=== PATIENT | male | born 1950 | race African-American/Black ===

== ENCOUNTER → 2016-11-09 | Day surgery (SDC) | payer MEDICARE, BC ==
[~2016-11-09] MED LIST: ACET325T9 PO; ALLO300T PO; AMLO10TA2 PO; AMLO5TAB2 PO; ASPI81TA50 PO; CARV12.52 PO; FERR-26 PO; FERR325T72 PO; GLUC1TAB33 PO; HYDR-971 PO; IBUP200C9 PO; IBUP200T58 PO; IV RINGERS,LACTATED 1000ML 1,000 ML IV SCH; LIDOCAINE 2% PF Vial for OR 5 ML VIAL. ONE; METO25TA4 PO; NAPR220T70 PO; OMEP20TA63 PO; OXYC-323 PO; OXYC5TAB PO; POTA20TA4 PO; PROPOFOL 40 ML IV ONE; RIVA10TA PO; SERT100T PO; SIMV20TA3 PO; VALS1TAB22 PO; WARF-78 PO
--- NOTE | 2016-11-09 08:15 | PDOC1 ---
HISTORY & PHYSICAL H&P Tessa Rod [id number] 1950 10/01/2016 11:45 AM 05/16 [facility], [facility] OUR PATIENTS [facility] [address] [place], [place] [id number] Ph. [phone] Patient: Tessa Rod Date of : 1950 Date: 10/01/2016 11:45 AM Visit Type: Consult This 65 year old male presents for H/o colorectal polyp. History of Present Illness: 1. H/o colorectal polyp Prior screening: colonoscopy. Risk Factors: h/o colon polyp. Pertinent negatives include abdominal pain, change in bowel habits, change in stool caliber, constipation, decreased appetite, diarrhea, melena, nausea, rectal bleeding, vomiting, weight gain and weight loss. Additional information: No family history of colon cancer, No family history of Crohn's/colitis, No NSAID/ ASA use and Last colonoscopy 5 yrs ago. INTAKE COMMENTS: Intake Comments: Nurse Note: the pt is here today to schedule a colonoscopy due to a hx of colon polyps in 2011. PROBLEM LIST: Problem Description Onset Date Osteoarthritis of right knee, unspecified osteoarthritis type 07/22/2015 Paroxysmal atrial fibrillation 11/14/2015 Depressive disorder 08/17/2013 Atrial fibrillation with RVR 11/05/2015 Benign essential hypertension 12/01/2009 Hyperlipidemia 12/01/2009 Gastroesophageal reflux disease 01/21/2015 Osteoarthritis 06/25/2014 Tachycardia 11/05/2015 Morbid obesity with BMI of 40.0-44.9, adult 12/19/2015 BPH NOS w/o ur obs/LUTS 12/19/2015 Impotence of organic origin 06/21/2012 PAST MEDICAL/SURGICAL HISTORY (Detailed) Disease/disorder Onset Date Management Date Comments cardiac cath- normal coronaries 2007 Appendectomy Tonsillectomy right TKA in 10/29 Allergies Benign prostatic hypertrophy Colonic polyps 10/19/2011 colonoscopy with biopsy 10/19/2011 diverticulosis hemmorrhoidectomy GERD Hyperlipidemia hypertension Internal hemorrhoids 10/19/2011 obesity Osteoarthritis DIAGNOSTICS HISTORY: Test Ordered Interpretation Result completed COLONOSCOPY AND BIOPSY 10/19/2011 Abnormal Imp: Polyps, (bx). Grade 2 Internal hemorrhoids. BX: Hyperplastic polyp. 10/19/2011 ELECTROCARDIOGRAM, COMPLETE 09/23/2014 normal 09/23/2014 ELECTROCARDIOGRAM, COMPLETE 11/05/2015 abnormal a fib with moderate increased VR 11/05/2015 Test Ordered Ordering Comments Modifier COLONOSCOPY AND BIOPSY 10/19/2011 Gastroenterology ELECTROCARDIOGRAM, COMPLETE 09/23/2014 ELECTROCARDIOGRAM, COMPLETE 11/05/2015 Medications (Active): Started Medication Directions Instruction Stopped 04/05/2016 allopurinol 300 mg tablet take 1 tablet by oral route every day 09/24/2016 AMLODIPINE BESYLATE TABS 10MG TAKE 1 TABLET DAILY (NOTE NEW DOSE) 06/15/2016 METOPROLOL TARTRATE 25 MG TABLET TAKE 1 TABLET BY ORAL ROUTE 2 TIMES EVERY DAY 08/23/2016 POT CHLOR ER TABS 20MEQ TAKE 1 TABLET DAILY WITH FOOD 12/19/2015 Prilosec OTC 20 mg tablet,delayed release take 1 Tablet by Oral route 2 times every day 08/12/2016 SERTRALINE HCL TABS 100MG TAKE 1 TABLET DAILY (NOTE NEW DOSE) 05/07/2016 SIMVASTATIN TABS 20MG TAKE 1 TABLET EVERY EVENING 09/24/2016 VALSARTAN/HCTZ TABS 320/25 TAKE 1 TABLET DAILY 11/09/2015 Xarelto 20 mg tablet take 1 tablet by oral route every day with the evening meal Allergies: Ingredient Reaction Medication Name Comment LISINOPRIL cough REVIEW OF SYSTEMS System Neg/Pos Details Constitutional Negative Chills, fever, malaise, weight gain and weight loss. ENMT Negative Sore throat. Eyes Negative Double vision. Respiratory Negative Dyspnea and wheezing. Cardio Negative Chest pain and irregular heartbeat/palpitations. GI Positive See HPI. GI Negative Abdominal pain, change in bowel habits, change in stool caliber, constipation, decreased appetite, diarrhea, melena, nausea, see HPI, rectal bleeding and vomiting. Negative Dysuria and hematuria. Endocrine Negative Cold intolerance and heat intolerance. Psych Negative Anxiety. Integumentary Negative Hives and rash. MS Negative Joint pain. Erick/Lymph Negative Easy bleeding and easy bruising. Allergic/Immuno Negative Food allergies. VITAL SIGNS Time BP mm/Hg Pulse /min Resp /min Temp F Ht ft Ht in Ht cm Wt lb Wt kg BMI kg/ m2 BSA m2 O2 Sat% 11:39 AM 126/82 94 97.9 6.0 2.00 187.96 345.40 156.671 44.35 94 Time Measured by 11:39 AM Jenni Decker PHYSICAL EXAM: Exam Findings Details Constitutional Normal Well developed. Eyes Normal Conjunctiva - Right: Normal, Left: Normal. Sclera - Right: Normal, Left: Normal. Nasopharynx Normal Lips/teeth/gums - Normal. Neck Exam Normal Inspection - Normal. Thyroid gland - Normal. Respiratory Normal Inspection - Normal. Auscultation - Normal. Cardiovascular Normal Regular rate and rhythm. No murmurs, gallops, or rubs. Vascular Normal Pulses - Carotids: Normal, Femoral: Normal, Dorsalis pedis: Normal. Abdomen Normal Inspection - Normal. Anterior palpation - No guarding. No abdominal tenderness. No hepatic enlargement. No splenic enlargement. No hernia. No ascites. Skin Normal Inspection - Normal. Extremity Normal No edema. Psychiatric * Oriented to time, place, person and situation. Psychiatric Normal Appropriate mood and effect. Assessment/Plan # Detail Type Description 1. Assessment History of colon polyps (Z86.010). Patient Plan schedule colonoscopy at [facility] Plan Orders Further diagnostic evaluations ordered today include(s) Colonoscopy to be performed today. He is to schedule a follow-up visit with Adelaida Buckner MD upon completion of work-up Electronically signed by: Adelaida Buckner MD 10/01/2016 01:55 PM Document generated by: Adelaida Bcukner 10/01/2016 01:55 PM Lissette Kaur MD, Family Practice; Saeid Smith MD Internal Medicine; Na Nice MD, Internal Medicine; Rose Buckner MD Internal Medicine; Adelaida Buckner MD, Gastroenterology; Osman Bender MD, Rheumatology, S. Jose Daniel Cárdenas, Physical Medicine/Rehab Darya Stewart APRN ------ 11/09/16 Patient seen and examined. No change in H&P. ADELAIDA BUCKNER MD Nov 09, 2016 08:15
[2016-11-09 10:01] VITALS: BP 174/99
--- NOTE | 2016-11-09 11:39 | PDOC4 ---
GI OP Report - Dr. Bess Date/Time DATE: 11/09/16 TIME: 11:37 Attending Physician Ron Bess MD Referring Physician Indications Personal history of colonic polyps Pre-Op See the Anesthesia note for documentation of the administered medications Procedures Colonoscopy Findings - Internal hemorrhoids. - Abnormal mucosa at the appendicial oppening. Plan - Discharge patient to home. - Patient has a contact number available for emergencies. The signs and symptoms of potential delayed complications were discussed with the patient. Return to normal activities tomorrow. Written discharge instructions were provided to the patient. - Resume regular diet. - Continue present medications. - Await pathology results. - Repeat colonoscopy in 3 - 5 years for surveillance based on pathology results. - Return to my office in 2 weeks. RON BESS MD Nov 09, 2016 11:39
== END | disposition home or self-care (01) ==
LOC: ENDOS 08:05
PROVIDERS: ATTEND Internal Medicine Gastroenterology
DX: Z09 Encounter for follow-up examination after completed treatment for conditions other than malignant neoplasm (principal); Z87.19 Personal history of other diseases of the digestive system; K64.0 First degree hemorrhoids; E78.00 Pure hypercholesterolemia, unspecified; I48.91 Unspecified atrial fibrillation; I10 Essential (primary) hypertension; E66.9 Obesity, unspecified; Z68.44 Body mass index [BMI] 60.0-69.9, adult; K21.9 Gastro-esophageal reflux disease without esophagitis; Z87.39 Personal history of other diseases of the musculoskeletal system and connective tissue; M19.90 Unspecified osteoarthritis, unspecified site; Z96.652 Presence of left artificial knee joint; F32.9 Major depressive disorder, single episode, unspecified; F17.200 Nicotine dependence, unspecified, uncomplicated; Z88.8 Allergy status to other drugs, medicaments and biological substances
CPT/HCPCS: 45380; J2704

== ENCOUNTER → 2016-12-07 | Outpatient (CLI) | payer MEDICARE, BC ==
[2016-11-09 10:01] VITALS: BP 174/99
[~2016-12-07] MED LIST changes: -IV RINGERS,LACTATED 1000ML 1,000 ML IV SCH; -LIDOCAINE 2% PF Vial for OR 5 ML VIAL. ONE; -PROPOFOL 40 ML IV ONE
--- NOTE | 2016-12-07 14:07 | KCIC ---
MRI of the cervical spine without contrast 12/07/2016 CLINICAL HISTORY: Neck pain which radiates down the left arm. Bilateral hand numbness. TECHNIQUE: Unenhanced T1-weighted, T2-weighted and inversion recovery sagittal and gradient echo and T2-weighted axial images of the cervical spine were obtained. FINDINGS: Mild S-shaped curvature of the cervicothoracic spine is seen. There is straightening of the normal cervical lordosis. Degenerative signal changes are seen involving all of the disks of the cervical spine. Degenerative signal changes are seen within the marrow surrounding these discs. Loss of height of the C3-4, C4-5, C5-6 and C6-7 discs is noted. No area of abnormal signal intensity is seen involving the cervical spinal cord. At the C2-3 disc space there is a minimal generalized disc bulge. Degenerative changes are seen involving the facet joints and uncovertebral joints bilaterally. These findings do not result in significant central spinal canal or neural foraminal stenosis. At the C3-4 disc space there is a mild generalized disc bulge. Superimposed on this disc bulge is a right paracentral disc protrusion. This measures 2.5 mm in AP diameter. Degenerative changes are seen involving the uncovertebral and facet joints, left greater than right. These findings efface the anterior CSF without resulting in significant central spinal canal stenosis. Mild to moderate left neural foraminal stenosis is seen. The right neural foramen is patent. At the C4-5 disc space there is a mild generalized disc bulge. Degenerative changes are seen involving the uncovertebral and facet joints, right greater than left. These findings efface the anterior CSF without resulting in significant central spinal canal stenosis. Mild to moderate right greater than left neural foraminal stenosis is seen. At the C5-6 disc space there is a mild generalized disc bulge. Superimposed on this disc bulge is a central/right paracentral disc osteophyte complex. This measures 3 mm in AP diameter. Degenerative changes are seen involving the uncovertebral and facet joints bilaterally. These findings when combined efface the anterior CSF without resulting in significant central spinal canal or neural foraminal stenosis. At the C6-7 disc space there is a mild generalized disc bulge. Superimposed on this disc bulge is a central/right paracentral focal disc protrusion. This measures 3 mm in AP diameter. Degenerative changes are seen involving the uncovertebral and facet joints, right greater than left. These findings when combined do not result in significant central spinal canal or neural foraminal stenosis. At the C7-T1 disc space is a mild generalized disc bulge. Degenerative changes are seen involving the facet joints bilaterally. These findings do not result in significant central spinal canal or neural foraminal stenosis. IMPRESSION: Degenerative changes are seen throughout the cervical spine. These findings do not result in significant central spinal canal stenosis at any level. Mild to moderate left neural foraminal stenosis is seen at C3-4. Mild to moderate right greater than left neural foraminal stenosis is seen at C4-5. Electronically signed by: Evaristo Vargas MD (12/07/2016 2:03 PM) [id number]
--- NOTE | 2016-12-07 14:34 | KCIC ---
MRI of the lumbar spine without contrast 12/07/2016 CLINICAL HISTORY: Low back pain which radiates down both hips. TECHNIQUE: Unenhanced T1-weighted and T2-weighted sagittal and axial and inversion recovery sagittal images of the lumbar spine were obtained. FINDINGS: Very mild S-shaped curvature of the thoracolumbar spine is seen. Degenerative signal changes are seen involving all of the disks of the lumbar spine. Degenerative signal changes are seen within the marrow surrounding the L3-4, L4-5 and L5-S1 discs. Loss of height of the L5-S1 disc is noted. The conus medullaris is normal morphology, position, and signal characteristics. A 3.1 cm rounded high signal intensity lesion is seen involving the lower pole of the right kidney on the T2-weighted images. This likely represents a cyst. At the L1-2 and L2-3 disc spaces there are mild generalized disc bulges. Degenerative changes are seen involving the facet joints bilaterally. There is mild ligamentum flavum hypertrophy bilaterally. These findings when combined do not result in significant central spinal canal or neural foraminal stenosis. At the L3-4 disc space there is a mild generalized disc bulge. Degenerative changes are seen involving the facet joints bilaterally. There is mild to moderate ligamentum flavum hypertrophy bilaterally. There is prominence of the posterior epidural fat. These findings when combined result in very mild central spinal canal stenosis. No neural foraminal stenosis is seen. At the L4-5 disc space there is a mild to moderate generalized disc bulge. This is eccentric to the right. Superimposed on this disc bulge is a focal central disc protrusion. This measures 4 mm in AP diameter. Degenerative changes are seen involving the facet joints bilaterally. There is moderate ligamentum flavum hypertrophy bilaterally. There is prominence of the posterior epidural fat. These findings when combined result in moderate to severe central spinal canal stenosis. No neural foraminal stenosis is seen. At the L5-S1 disc space there is a mild generalized disc bulge. Degenerative changes are seen involving the facet joints bilaterally. There is prominence of the posterior epidural fat. These findings when combined result in mild to moderate central spinal canal stenosis. No neural foraminal stenosis is seen. IMPRESSION: The changes of degenerative disc disease are seen throughout the lumbar spine. These findings result in very mild central spinal canal stenosis at L3-4, mild to moderate central spinal canal stenosis at L5-S1 and moderate to severe central spinal canal stenosis at L4-5. No neural foraminal stenosis is seen. Electronically signed by: Evaristo Vargas MD (12/07/2016 2:31 PM) [facility]
== END | disposition home or self-care (01) ==
LOC: KCIC MRI 11:50
PROVIDERS: ATTEND Physical Medicine & Rehabilitation
DX: M47.892 Other spondylosis, cervical region (principal); M99.81 Other biomechanical lesions of cervical region
CPT/HCPCS: 72141; 72148

== ENCOUNTER → 2018-12-26 | Outpatient (CLI) | payer MEDICARE ==
[2016-11-09 10:01] VITALS: BP 174/99
[~2018-12-26] MED LIST changes: -AMLO10TA2 PO; +AMLO10TA4 PO; +AMLO10TA8 PO; +AMLO5TAB10 PO; -AMLO5TAB2 PO; +CARV12.511 PO; -CARV12.52 PO; -FERR-26 PO; +FERR325T14 PO; +HYDR-2761 PO; +HYDR-3164 PO; -HYDR-971 PO; -OXYC-323 PO; +OXYC1TAB15 PO; -OXYC5TAB PO; +OXYC5TAB4 PO
--- NOTE | 2018-12-26 12:41 | PAIN ---
DATE OF SERVICE: 12/26/2018 INITIAL CONSULTATION FOR PAIN CLINIC CHIEF COMPLAINT: Neck, right upper extremity pain. SECONDARY COMPLAINT: Back and right lower extremity pain. HISTORY OF PRESENT ILLNESS: This is a 68-year-old male who presents with history of pain for many years in the back of the neck, right upper extremity with low back and right lower extremity. The patient reports it is much worse in the neck and right upper extremity with radiating pain, shooting from the base of the neck and the right shoulder, right arm and anterior deltoid, posterior deltoid, anterior biceps and triceps posteriorly as well as the anterior and posterior forearm with numbness and tingling in the hand and fingers on the right side. The patient reports it is sharp and stabbing and throbbing in quality with numbness, radiating pain in the right arm, intermittent in intensity, also some numbness in the right thigh bilaterally. The patient reports it is aching in the arm and shoulder as well. The patient reports he has had physical therapy, also trigger point injections, which both were helpful to some extent. Most recently 06/08 had trigger point injections with Dr. Jose Daniel Cárdenas which helped for about a week. The patient reports otherwise the pain has been significant and radiating, more in the right upper extremity. The patient rates his disability from 0-10, 10 being the worst, is a 10 with family and home responsibilities, recreation, occupation and sexual behavior, 8 with social activity and self-care, and 2 with life support activities. The patient reports it awakens him from sleep very infrequently, but does affect his bowel or bladder control, to some extent. He has more urgency, but no loss of continence with the back and right leg pain. The patient reports he is using a cane to walk. It does affect his walking to fairly significant extent with the low back and right leg, but again his chief complaint is the right arm and upper extremity and neck. The patient did have MRI scan dated 11/2016. Cervical spine showing at C4-C5, C5-C6 and C6-C7, generalized disk bulge at C6-C7, shows superimposed central right paracentral focal disk protrusion at C6-C7 measuring 3 mm in AP diameter with a mild generalized disk bulge at C7-T1 as well and central right paracentral disk osteophyte complex at C5-C6. The patient's lumbar MRI shows degenerative disk disease throughout the lumbar spine, very mild central spinal canal stenosis at L3-L4 and [id number] central spinal canal stenosis at L5-S1. The patient also has L4-L5 a central disk protrusion eccentric to the right. PAST MEDICAL HISTORY: Significant for hypertension, atrial fibrillation, gastroesophageal reflux, dizziness, arthritis. PREVIOUS SURGERIES: Include bilateral knee replacements, appendectomy and tonsillectomy. CURRENT MEDICATIONS: Include Prilosec, Xarelto, atorvastatin, potassium chloride, metoprolol, Norvasc, Zoloft, allopurinol, losartan, and hydrocodone. ALLERGIES: The patient has no known drug allergies. FAMILY HISTORY: Significant for no major medical problems or conditions that he is aware of. SOCIAL HISTORY: The patient does not drink alcohol, does not smoke, does not use any illegal, illicit or recreational drugs. The patient reports he is a , lives locally in [place], [place] and is currently retired. REVIEW OF SYSTEMS: The patient's review of systems is positive for those items mentioned in history of present illness. All systems reviewed and otherwise negative. It is complete, full and well documented on the patient's chart. PHYSICAL EXAMINATION: VITAL SIGNS: The patient's blood pressure is 179/95, pulse 61, respirations 18, temperature 97.8 degrees Fahrenheit, height 6 feet 4 inches, weight is 361 pounds. GENERAL: The patient is awake, alert, oriented, appropriate, very pleasant demeanor. HEENT: Shows normocephalic, atraumatic. Extraocular movements are intact and symmetrical. Oral cavity: Mucous membranes moist and pink. Dentition is intact. NECK: Shows anterior throat supple without palpable lymphadenopathy noted. Swallow reflex symmetrical. CHEST: Shows normal on inspection. Breath sounds clear to auscultation bilaterally. HEART: Shows S1, S2 clear. No murmurs auscultated. ABDOMEN: Soft, nontender, nondistended. No palpable organomegaly is noted. No rebound or guarding demonstrated. BACK: Shows spine grossly in the midline. Normal appearing thoracic kyphosis, cervical lordotic curvature and lumbar lordotic curvature. Cervical paraspinous muscle shows symmetrical on inspection, on palpation shows some moderate tenderness diffusely throughout the middle and lower distribution of paraspinous muscles, but only diffusely without significant radiation. The patient has good rotational motion of cervical spine with some moderate tenderness with left lateral rotation as well as full extension, but not with forward flexion or right lateral rotation. EXTREMITIES: The patient's upper extremities show deep tendon reflexes 2+ in the biceps and triceps tendons. Motor exam is strong with size maker strength rated at 5/5 on the left and 4/5 on the right. Bicep and tricep flexion likewise 4/5 right, 5/5 on the left, but intact. Peripheral pulses are 2+ radial distribution. No peripheral edema is noted. Shoulder shrug is strong and intact without loss of strength on resistance as is abduction of shoulder to 90 degrees without significant loss of strength with resistance shows some moderate pain on the right side of the shoulder and into the anterior biceps with resistance on the right only. The patient's lower extremities show deep tendon reflexes 1+ in the patellar and tendo calcaneus tendons. Motor exam is strong with 5/5 dorsiflexion, extension and equal bilaterally. Peripheral pulses are 1+ posterior tibia. No peripheral edema is noted. The patient's skin shows warm and dry, good turgor. No edema. No sores, rashes or bruising. The patient is able to stand, stand on toes without difficulty or loss of balance, walks with a normal appearing gait for short distance in the office today and has a cane with him using in his right hand. IMPRESSION: This is a 68-year-old male with: 1. Long history of neck and right upper extremity pain with cervical radicular pain in a C6-C7 dermatomal distribution on the right. 2. Low back pain and right radicular pain in the lumbar 4 and 5 dermatomal distribution. 3. Hypertension. 4. Arthritis. 5. Atrial fibrillation. 6. Anticoagulation therapy. PLAN: Options were discussed with the patient including conservative medical managements, continued physical therapies, interventional techniques. He would like to pursue interventional techniques. We discussed a cervical epidural steroid injection using description as well as anatomical models to describe the procedure. The patient will wait for preauthorization with insurance provider for a translaminar C6-C7 level cervical epidural steroid injection for the right upper extremity. We discussed possibility of potentially treating his back in the future as well with his neck and right upper extremity. Cervical radiculopathy is most pressing pain component at this time. We will wait for preauthorization. 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 Manriquez for clearance to hold his Xarelto for 3 days prior to injection and return for cervical epidural steroid injection as scheduled. KATHE BARRON MD DR: ADRIANA/cliff JOB#: [id number] / [id number] JOHN Moore MD
== END | disposition home or self-care (01) ==
LOC: PNCL 10:58
PROVIDERS: ATTEND Anesthesiology
DX: M54.5 Low back pain (principal); M79.601 Pain in right arm; M54.2 Cervicalgia; I10 Essential (primary) hypertension; I48.91 Unspecified atrial fibrillation; K21.9 Gastro-esophageal reflux disease without esophagitis; M19.90 Unspecified osteoarthritis, unspecified site; Z96.653 Presence of artificial knee joint, bilateral; Z90.49 Acquired absence of other specified parts of digestive tract; Z90.89 Acquired absence of other organs; Z79.84 Long term (current) use of oral hypoglycemic drugs; Z79.891 Long term (current) use of opiate analgesic; Z79.1 Long term (current) use of non-steroidal anti-inflammatories (NSAID); Z79.899 Other long term (current) drug therapy; Z79.01 Long term (current) use of anticoagulants
CPT/HCPCS: G0463

== ENCOUNTER → 2019-01-19 | Outpatient (CLI) | payer MEDICARE ==
[2016-11-09 10:01] VITALS: BP 174/99
[~2019-01-19] MED LIST changes: +IOHEXOL 180 MG/ML 10 ML VIAL. ONE; +methylPREDNISolone ACETATE 40 MG/ML VIAL. ONE; +methylPREDNISolone ACETATE 80 MG/ML VIAL. ONE
--- NOTE | 2019-01-20 04:28 | PAIN ---
DATE OF SERVICE: 01/19/2019 PROGRESS NOTE FOR PAIN CLINIC DIAGNOSES: 1. Cervical radiculopathy with cervical degenerative disk disease. 2. Lumbar radiculopathy with lumbar degenerative disk disease. HISTORY OF PRESENT ILLNESS: The patient is a 68-year-old male who returns for followup status post initial evaluation and preauthorization for cervical epidural steroid injection. The patient has obtained this now and would like to proceed, still significant pain in the base of the shoulders, right greater than left into the upper extremities, worse with walking, standing, changing positions, upper extremity use repetitive motions, reaching over his head with his right hand and left hand, both symptomatic. It is awakening him from sleep about every 5-6 hours. The patient reports it is tingling, sharp, rates his pain at 8 on a scale of 10 at its worst over the past week, 8 on average and a 7 at its least and is a 7 today. The patient reports no new motor or sensory deficits, no new bowel or bladder incontinence. Also, some low back pain with pain radiating to bilateral lower extremities as well. PHYSICAL EXAMINATION: VITAL SIGNS: The patient's blood pressure 152/96, pulse 67, respirations 16, temperature 98.2 degrees Fahrenheit, weight is 354 pounds. GENERAL: The patient is awake, alert, oriented, appropriate, very pleasant demeanor. HEENT: Head shows normocephalic, atraumatic. Extraocular movements are intact and symmetrical. Oral cavity: Mucous membranes moist and pink. Dentition is intact. NECK: Shows anterior throat supple without palpable lymphadenopathy noted. Swallow reflex symmetrical. CHEST: Shows normal on inspection. Breath sounds clear to auscultation bilaterally. HEART: Shows S1, S2 clear. No murmurs auscultated. ABDOMEN: Soft, nontender, nondistended. No palpable organomegaly is noted. No rebound or guarding demonstrated. EXTREMITIES: The patient's upper extremities show deep tendon reflexes 2+ in the biceps and triceps tendons. Motor exam is approximately 4/5 on the right and 5/5 on the left. Peripheral pulses are 1+ posterior tibial. No peripheral edema is noted bilaterally. The patient's old chart was reviewed and medication regimen updated today as well as review of systems updated today. PLAN: The patient would like to proceed with a cervical epidural steroid injection. We discussed the risks including, but not limited to bleeding, infection, possibility of epidural hematoma, subsequent neurological compromise, dural puncture, headaches, spinal cord and/or nerve damage, side effects of steroid medication and poor results regarding pain control. The patient understands and wished to proceed. The patient will return to clinic in approximately 2 weeks for followup. He was counseled on return appointment, activity level and side effects to be aware of. DIAGNOSIS: Cervical radiculopathy with cervical degenerative disk disease. PROCEDURE: Cervical epidural steroid injection, translaminar approach C6-C7 level using C-arm fluoroscopic guidance under sterile prep and drape using local anesthetic. MEDICATION INJECTED: The patient received a total of 120 mg Depo-Medrol plus 5 mL of preservative-free normal saline and 2 mL of contrast. CONDITION AT DISCHARGE: Stable. The patient tolerated procedure well, had no complications. KATHE BARRON MD DR: ADRIANA/cliff JOB#: [id number] / [id number]
== END | disposition home or self-care (01) ==
LOC: PNCL 08:56
PROVIDERS: ATTEND Anesthesiology
DX: M50.123 Cervical disc disorder at C6-C7 level with radiculopathy (principal); M51.16 Intervertebral disc disorders with radiculopathy, lumbar region; Z88.8 Allergy status to other drugs, medicaments and biological substances
CPT/HCPCS: 62321; J1030; J1040; Q9965; 62323

== ENCOUNTER → 2019-02-02 | Outpatient (CLI) | payer MEDICARE ==
[2016-11-09 10:01] VITALS: BP 174/99
[~2019-02-02] MED LIST changes: -IOHEXOL 180 MG/ML 10 ML VIAL. ONE; -methylPREDNISolone ACETATE 40 MG/ML VIAL. ONE; -methylPREDNISolone ACETATE 80 MG/ML VIAL. ONE
--- NOTE | 2019-02-02 12:45 | PAIN ---
DATE OF SERVICE: 02/02/2019 PROGRESS NOTE FOR PAIN CLINIC DIAGNOSES: 1. Cervical radiculopathy with cervical degenerative disk disease. 2. Lumbar radiculopathy with lumbar degenerative disk disease. HISTORY OF PRESENT ILLNESS: The patient is a 68-year-old male, who returns for followup status post cervical epidural steroid injection x 1. The patient reports about 60% improvement overall in his neck and right greater than left upper extremity pain. The patient reports he is doing much better, increased his activity with greater ease and comfort, doing household activities, distance walking and standing longer periods, using his upper extremities with much greater ease and comfort and better strength. The patient reports better duration of activity and without as much fatigued. The patient reports his pain is a 5 on a scale of 10 at its worst over the past week, 4 on average, 4 at its least and is a 4 today. The patient reports it is sharp at times, on and off in intensity. He is sleeping well at night, does not awaken him from sleep. Again, doing much better, but still some radicular pain in the C6-C7 dermatomal distribution, more on the right upper extremity than the left, but present bilaterally. PHYSICAL EXAMINATION: VITAL SIGNS: The patient's blood pressure 151/91, pulse 53, respirations 16, temperature 97.5 degrees Fahrenheit, and weight is 353 pounds. GENERAL: The patient is awake, alert, oriented, appropriate, very pleasant demeanor. HEENT: Head shows normocephalic, atraumatic. Extraocular movements are intact and symmetrical. Oral cavity: Mucous membranes are moist and pink. Dentition is intact. NECK: Shows anterior throat supple without palpable lymphadenopathy noted. Swallow reflex symmetrical. CHEST: Shows normal on inspection. Breath sounds are clear to auscultation bilaterally. HEART: Shows S1, S2 clear. No murmurs auscultated. ABDOMEN: Soft, nontender, nondistended. BACK: Shows spine grossly in the midline. Cervical paraspinous muscle shows symmetrical on inspection, on palpation shows some moderate tenderness diffusely, but only diffusely without significant radiation. The patient has good rotational motion of cervical spine, both laterally as well as extension and flexion without significant increase in pain. EXTREMITIES: Upper extremities show deep tendon reflexes 2+ in the biceps, triceps tendons. Motor exam is strong with 4/5 with right manual lathe machinist strength and 5/5 on the left. Bicep and tricep flexion likewise 4/5 right, 5/5 left. Shoulder shrug is strong and intact without loss of strength on resistance as is abduction of shoulders at 90 degrees without loss of strength as well. RECOMMENDATIONS: Options were discussed with the patient. The patient's old chart was reviewed as his current medication regimen updated. Current review of systems updated today as well and we will preauthorize the patient for a second cervical epidural steroid injection using much better still with clinical radiculopathy in the C6-C7 dermatomal distribution greater on the right than the left, but present bilaterally. The patient will continue with stretching and shrinking exercises on his own. He will return to clinic as scheduled for a second cervical epidural steroid injection at that time. Also, we will hold the Xarelto for 3 days prior to the next appointment. KATHE BARRON MD DR: ADRIANA/cliff JOB#: [id number] / [id number]
== END | disposition home or self-care (01) ==
LOC: PNCL 09:27
PROVIDERS: ATTEND Anesthesiology
DX: M50.10 Cervical disc disorder with radiculopathy, unspecified cervical region (principal); M51.16 Intervertebral disc disorders with radiculopathy, lumbar region
CPT/HCPCS: G0463

== ENCOUNTER → 2019-03-08 | Outpatient (CLI) | payer MEDICARE ==
[2016-11-09 10:01] VITALS: BP 174/99
[~2019-03-08] MED LIST changes: +IOHEXOL 180 MG/ML 10 ML VIAL. ONE; +methylPREDNISolone ACETATE 40 MG/ML VIAL. ONE; +methylPREDNISolone ACETATE 80 MG/ML VIAL. ONE
--- NOTE | 2019-03-08 17:18 | PAIN ---
DATE OF SERVICE: 03/08/2019 PROGRESS NOTE FOR PAIN CLINIC DIAGNOSES: 1. Cervical radiculopathy with cervical degenerative disk disease. 2. Lumbar radiculopathy with lumbar degenerative disk disease. HISTORY OF PRESENT ILLNESS: The patient is a 68-year-old male who returns for followup status post cervical epidural steroid injection x 1. The patient was waiting for preauthorization with insurance provider, which he has obtained now for a second cervical epidural steroid injection with still persistent pain in the base of the neck and right upper extremity. The patient reports that since he was here last for his preauthorization, the pain has increased and gotten worse as he was unable to get a shot on his last visit, would like to proceed today. The patient reports it is in the base of the neck, right upper extremity, right shoulder, right arm, radiating, rates as a 5 on a scale of 10 at its worst over the past week, 4 on average, 4 at its least and is a 4 today. The patient reports it is sharp, tight, tingling, dull in the neck as well on and off in intensity, worse with walking, standing, changing positions, using his right upper extremity, better with sitting or lying down, does not awaken him from sleep at night. PHYSICAL EXAMINATION: VITAL SIGNS: The patient's blood pressure 151/82, pulse 72, respirations 16, temperature 98.0 degrees Fahrenheit, weight is 350 pounds. GENERAL: The patient is awake, alert, oriented, appropriate, very pleasant demeanor. HEENT: Shows normocephalic, atraumatic. Extraocular movements are intact and symmetrical. Oral cavity: Mucous membranes moist and pink. Dentition is intact. NECK: Shows anterior throat supple without palpable lymphadenopathy noted. Swallow reflex symmetrical. CHEST: Shows normal on inspection. Breath sounds clear to auscultation bilaterally. HEART: Shows S1, S2 clear. No murmurs auscultated. ABDOMEN: Soft, nontender, nondistended. No palpable organomegaly is noted. No rebound or guarding demonstrated. BACK: The patient's back shows spine grossly in the midline. Cervical paraspinous muscle shows symmetrical on inspection, on palpation shows some moderate tenderness diffusely, but only diffusely without radiation. The patient has good rotational motion of cervical spine, both laterally greater than 45 degrees, close to 90 degrees as well as full extension, and full forward flexion without significant pain reported. EXTREMITIES: The patient's upper extremities show deep tendon reflexes 2+ in the biceps and triceps tendons. Motor exam is 4 on a scale of 5 with right boiling tub operator strength and 5/5 on the left. Peripheral pulses are 2+ radial distribution. No peripheral edema is noted bilaterally. Options were discussed with the patient. The patient's old chart was reviewed as his current medication regimen updated. Current review of systems updated today as well. We will proceed with a second series of cervical epidural steroid injection today with fluoroscopic guidance. Risks were again discussed including, but not limited to bleeding, infection, possibility of epidural hematoma, subsequent neurological compromise, dural puncture, headaches, spinal cord and/or nerve damage, side effects of steroid medication and poor results regarding pain control. The patient understands and wished to proceed. The patient will return to clinic in approximately 2 weeks for followup. He was counseled on activity level and side effects to be aware of. DIAGNOSIS: Cervical radiculopathy with cervical degenerative disk disease. PROCEDURE: Cervical epidural steroid injection, translaminar approach C6-C7 level using C-arm fluoroscopic guidance under sterile prep and drape using local anesthetic. MEDICATION INJECTED: The patient received a total of 120 mg Depo-Medrol plus 5 mL of preservative-free normal saline and 2 mL of contrast. CONDITION AT DISCHARGE: Stable. The patient tolerated procedure well, had no complications. KATHE BARRON MD DR: ADRIANA/cliff JOB#: [id number] / [id number]
== END ==
LOC: PNCL 11:27
PROVIDERS: ATTEND Anesthesiology
DX: M50.123 Cervical disc disorder at C6-C7 level with radiculopathy (principal); M51.16 Intervertebral disc disorders with radiculopathy, lumbar region
CPT/HCPCS: 62321; J1030; J1040; Q9965; 62323

== ENCOUNTER → 2019-03-29 | Outpatient (CLI) | payer MEDICARE ==
[2016-11-09 10:01] VITALS: BP 174/99
[~2019-03-29] MED LIST changes: -IOHEXOL 180 MG/ML 10 ML VIAL. ONE; +SIMV20TA18 PO; -SIMV20TA3 PO; -methylPREDNISolone ACETATE 40 MG/ML VIAL. ONE; -methylPREDNISolone ACETATE 80 MG/ML VIAL. ONE
--- NOTE | 2019-03-29 13:24 | PAIN ---
DATE OF SERVICE: 03/29/2019 PROGRESS NOTE FOR PAIN CLINIC DIAGNOSES: Cervical radiculopathy with cervical degenerative disk disease. HISTORY OF PRESENT ILLNESS: The patient is a 68-year-old male who returns for followup status post cervical epidural steroid injections x 2. The patient reports about 80% improvement initially, now about 60% improvement overall. The patient reports no new motor or sensory deficits, no new changes, but still some pain in the base of the neck and into the right upper extremity as it was previously in a radicular fashion, worse with increased activity, reaching over his head with his right arm, but much better. The patient reports he is sleeping better at night, increase his activity at home as well as work activities, household activities around the house. The patient reports the pain is in the base of the neck radiating to the right shoulder, posterior deltoid, posterior triceps, into the bicep as well, sharp and tight in the neck and radiating and shooting into the right arm. The patient reports it is a 5 on a scale of 10 at its worst, 1 on average and a 0 at its least and a 1 today. The patient reports no new motor or sensory deficits, no new bowel or bladder incontinence or other complaints. The pain is still subsided to this point, which has been about almost 3 weeks since the injection. PHYSICAL EXAMINATION: VITAL SIGNS: The patient's blood pressure is 171/102, pulse 62, respirations 16, temperature 98.4 degrees Fahrenheit, height is 6 feet 4 inches, weight is 357 pounds. GENERAL: The patient is awake, alert, oriented, appropriate, very pleasant demeanor. HEENT: Shows normocephalic, atraumatic. The patient wears eye glasses. Extraocular movements are intact and symmetrical. Oral cavity shows mucous membranes moist and pink. Dentition is intact. NECK: Shows anterior throat supple without palpable lymphadenopathy noted. Swallow reflex symmetrical. CHEST: Shows normal on inspection. Breath sounds are clear bilaterally. HEART: Shows S1, S2 clear. No murmurs auscultated. ABDOMEN: Obese but soft, nontender, nondistended. BACK: Shows spine grossly in the midline, normal appearing thoracic kyphosis and cervical lordotic curvature. Cervical paraspinous muscle shows symmetrical on inspection, on palpation shows some moderate tenderness diffusely bilaterally going diffusely without significant radiation. The patient has good rotational motion of the cervical spine, both laterally as well as extension and flexion without significant difficulty. Lumbar spine shows symmetrical paraspinous musculature with inspection. On palpation shows some moderate tenderness but only in the middle and lower distribution of paraspinous muscles diffusely bilaterally without radiation, without trigger points. The patient does show good rotation of the lumbar spine as well, greater than 10 degrees right and left as well as extension greater than 10 degrees, forward flexion 45 degrees without significant increase in pain. EXTREMITIES: The patient's upper extremities show deep tendon reflexes 2+ in the biceps and triceps tendons. Motor exam is approximately 4 on a scale of 5 on the right and 5/5 on the left with bicep and tricep flexion. Tool Maker Bench strength is 5/5 and equal bilaterally. Peripheral pulses are 2+ radial distribution. No peripheral edema is noted. Options were discussed with the patient. The patient's old chart was reviewed as his current medication regimen updated. Current review of systems updated today as well. We will preauthorize the patient for a third cervical epidural steroid injection as he has done quite well after the first two. Still with clinical radiculopathy in the C6-C7 dermatomal distribution on the right, but improved significantly about 60% overall. The patient will continue doing stretching and strengthening exercises on his own. We will wait for preauthorization. Once this is obtained, we will have the patient return for third cervical epidural steroid injection at that time. KATHE BARRON MD DR: ADRIANA/cliff JOB#: [id number] / [id number]
== END | disposition home or self-care (01) ==
LOC: PNCL 10:47
PROVIDERS: ATTEND Anesthesiology
DX: M50.10 Cervical disc disorder with radiculopathy, unspecified cervical region (principal)
CPT/HCPCS: G0463

== ENCOUNTER → 2019-06-18 | Outpatient (CLI) | payer MEDICARE ==
[2016-11-09 10:01] VITALS: BP 174/99
--- NOTE | 2019-06-18 12:53 | CARD ---
MR#: [id number] Date of Study: 06/18/2019 Ordering Physician: MALDONADO BENSON, Referring Physician: MALDONADO BENSON, Tech: Luanne Starr [facility] APPROVED REPORT EXAM: Two-dimensional and M-mode echocardiogram with Doppler and color Doppler. Other Information Quality : GoodHR: 60bpm Rhythm : NSR\arrhythmia INDICATION Paroxsysmal A-fib. Heart rate ranged from 60s-90s during exam. Hx: HTN, HLP. 2D DIMENSIONS RVDd4.0 (2.9-3.5cm)Left Atrium(2D)4.4 (1.6-4.0cm) IVSd1.2 (0.7-1.1cm)Aortic Root(2D)3.6 (2.0-3.7cm) LVDd5.3 (3.9-5.9cm)LVOT Diameter2.3 (1.8-2.4cm) PWd1.2 (0.7-1.1cm)LVDs4.2 (2.5-4.0cm) FS (%) 21.1 %SV57.6 ml LVEF(%)42.6 (>50%) Aortic Valve AoV Peak William.134.0cm/Danae Peak GR.7.2mmHg LVOT Peak William.76.2cm/sAVA (VMAX)2.36cm2 Mitral Valve MV E Axxgwmnj81.7cm/sMV DECEL OMEH372iu MV A Ckifkltu36.1cm/sE/A Ratio1.1 MV A [id number] Pulmonary Valve PV Peak [place]18.7cm/s Tricuspid Valve TR P. Jdxonpzm014is/sRAP PPKSQOSV0vmPi TR Peak Gr.95epEbTESH66gaEk Pulmonary Vein S1 Dgilhnzi74.2cm/sD2 Giuuthke68.3cm/s PVa [id number] LEFT VENTRICLE The left ventricle is normal size. There is mild concentric left ventricular hypertrophy. The left ve ntricular systolic function is normal. The Ejection Fraction is 55-60%. There is normal LV segmental wall motion. Transmitral Doppler flow pattern is Grade II-pseudonormal filling dynamics. RIGHT VENTRICLE The right ventricle is normal size. The right ventricular systolic function is normal. ATRIA The left atrium is moderately dilated. The right atrium is mildly dilated. Atrial septum is aneurysma l. No shunting noted with color doppler. AORTIC VALVE The aortic valve is normal in structure and function. No aortic regurgitation. There is no aortic hernandez vular stenosis. MITRAL VALVE The mitral valve is normal in structure and function. There is no mitral valve stenosis. No mitral va lve regurgitation noted. TRICUSPID VALVE The tricuspid valve is normal in structure and function. Mild tricuspid regurgitation. Estimated PAP is 40mmHg. There is no tricuspid valve stenosis. PULMONIC VALVE The pulmonary valve is normal in structure and function. No pulmonic valvular regurgitation. GREAT VESSELS The aortic root is normal in size. The ascending aorta is normal in size. The IVC is normal in size a nd collapses >50% with inspiration. PERICARDIAL EFFUSION There is no evidence of significant pericardial effusion. Critical Notification Critical Value: No <Conclusion> The left ventricular systolic function is normal. The Ejection Fraction is 55-60%. There is normal LV segmental wall motion. Transmitral Doppler flow pattern is Grade II-pseudonormal filling dynamics. The left atrium is moderately dilated. Mild tricuspid regurgitation. Estimated PAP is 40mmHg. Signed by : Christiano Mondragon, Electronically Approved : 06/18/2019 12:53:10
== END | disposition home or self-care (01) ==
LOC: ECHO 10:37
PROVIDERS: ATTEND Internal Medicine Cardiovascular Disease
DX: I07.1 Rheumatic tricuspid insufficiency (principal); I48.0 Paroxysmal atrial fibrillation
CPT/HCPCS: 93306

== ENCOUNTER → 2020-08-11 | Outpatient (CLI) | payer MEDICARE ==
[2016-11-09 10:01] VITALS: BP 174/99
[~2020-08-11] MED LIST changes: +AMLO-186 PO; +AMLO-187 PO; -AMLO10TA8 PO; -AMLO5TAB10 PO; +LOSA1TAB25 PO; -WARF-78 PO; +WARF5TAB2 PO
== END ==
LOC: LAB 10:47
PROVIDERS: ATTEND Internal Medicine Cardiovascular Disease
DX: Z01.812 Encounter for preprocedural laboratory examination (principal); I48.91 Unspecified atrial fibrillation; Z20.822 Contact with and (suspected) exposure to COVID-19
CPT/HCPCS: U0003

== ENCOUNTER 2020-08-14 09:58 | Day surgery (SDC) | payer MEDICARE ==
[~2020-08-14 09:58] MED LIST changes: +IV RINGERS,LACTATED 1000ML 1,000 ML IV SCH; -LOSA1TAB25 PO; -VALS1TAB22 PO; +VALS1TAB23 PO
[2020-08-14] MEDS ORDERED: LOSA1TAB25 PO (10:22)
--- NOTE | 2020-08-14 10:39 | EKG ---
[facility] [address] [place] [address] Test Date: 2020-08-14 Test Time: 10:35:36 Pat Name: TOM BANSAL Department: Room: Gender: M Senior Policy Analyst: SILVERIO : 1950 Requested By: MALDONADO BENSON Order Number: [id number] Reading MD: Measurements Intervals [place] Rate: 86 P: [place]: QRS: -12 QRSD: 78 T: -2 QT: 416 QTc: 501 Interpretive Statements IRREGULAR RHYTHM, NO P-WAVE FOUND LEFTWARD AXIS T ABNORMALITY IN HIGH LATERAL LEADS PROLONGED QT ABNORMAL ECG RI6.02 Compared to ECG 11/06/2015 08:27:18 Left-axis deviation now present T-wave abnormality now present Prolonged QT interval now present Sinus rhythm no longer present
[2020-08-14 10:49] LABS: BASO # 0.1 x10^3/uL (0.0-0.2); BASO % 1 % (0-3); EOS # 0.2 x10^3/uL (0.0-0.7); EOS % 2 % (0-3); HEMATOCRIT 42.2 % (39.0-53.0); HEMOGLOBIN 14.3 g/dL (13.0-17.5); LYMPH # 1.5 x10^3/uL (1.0-4.8); LYMPH % 18 % (24-48); MEAN CORPUSCULAR HEMOGLOBIN 32 pg (25-35); MEAN CORPUSCULAR HGB CONC 34 g/dL (31-37); MEAN CORPUSCULAR VOLUME 94 fL (79-100); MONO # 0.6 x10^3/uL (0.0-1.1); MONO % 7 % (0-9); NEUT % 72 % (31-73); PLATELET COUNT 327 x10^3/uL (140-400); RED BLOOD COUNT 4.48 x10^6/uL (4.30-5.70); RED CELL DISTRIBUTION WIDTH 14.3 % (11.5-14.5); WHITE BLOOD COUNT 8.4 x10^3/uL (4.0-11.0)
[2020-08-14 10:58] LABS: PROTHROMBIN TIME PATIENT 13.7 SEC (11.7-14.0)
[2020-08-14] MEDS ORDERED: LIDOCAINE 2% 100 MG/5 ML SYRINGE. ONE (11:00)
[2020-08-14] MEDS ORDERED: PROPOFOL 10 MG/ML (20ML) VIAL. IV ONE (11:00)
[2020-08-14] MEDS ORDERED: LIDOCAINE 2% VISCOUS 15 ML SOLUTION. SWSW ONE (11:00)
[2020-08-14] MEDS ORDERED: LIDOCAINE 2% TOPICAL JELLY 30GM TUBE. TP ONE (11:00)
[2020-08-14] MEDS ORDERED: BENZOCAINE ONE 20% MUCOSAL SPRAY. MM ×2 (11:00)
[2020-08-14 11:06] LABS: CALCIUM 8.9 mg/dL (8.5-10.1); GFR 89.4; POTASSIUM 3.5 mmol/L (3.5-5.1)
[2020-08-14 11:13] LABS: ALBUMIN 3.4 g/dL (3.4-5.0); ALBUMIN/GLOBULIN RATIO 0.8 (1.0-1.7); TOTAL BILIRUBIN 0.6 mg/dL (0.2-1.0); TOTAL PROTEIN 7.5 g/dL (6.4-8.2)
[2020-08-14] MEDS ORDERED: AMIODARONE 150 MG/3 ML VIAL ONE (11:21)
--- NOTE | 2020-08-14 11:39 | EKG ---
[facility] [address] [place] [address] Test Date: 2020-08-14 Test Time: 11:37:01 Pat Name: OTM BANSAL Department: Room: Gender: M Licensed Mental Health Professional: TAWANNA : 1950 Requested By: MALDONADO BENSON Order Number: [id number] Reading MD: Measurements Intervals [place] Rate: 60 P: [place]: QRS: -2 QRSD: 68 T: 0 QT: 404 QTc: 408 Interpretive Statements IRREGULAR RHYTHM, NO P-WAVE FOUND LEFTWARD AXIS OTHERWISE NORMAL ECG RI6.02 Compared to ECG 08/14/2020 10:35:36 T-wave abnormality no longer present Prolonged QT interval no longer present
[2020-08-14] MEDS ORDERED: AMIODARONE 150 MG in IV DEXTROSE 5% 100ML 100 ML IV ONE (11:45)
[2020-08-14 12:08] VITALS: BP 132/86
--- NOTE | 2020-08-15 14:26 | CARD ---
MR#: [id number] Date of Study: 08/14/2020 Ordering Physician: MALDONADO BENSON, Referring Physician: MALDONADO BENSON, Tech: Karyn Arguello [facility] APPROVED REPORT EXAM: Transesophageal echocardiogram with color flow Doppler. INDICATION Atrial Fibrillation Reason For Test : Rule out cardiac source of emboli. PROCEDURE Type of Sedation : General Anesthesia Sedation was administered by Anesthesa. The SARA was performed without complications. Synchronized Cardioversion attempted: Unsuccessful Rhythm following Synchronized Cardioversion: atrial fibrillation Throughout the procedure, the blood pressure, pulse oximetry, cardiac rhythm, and rate were monitored . The patient tolerated the procedure without adverse effects. Recovery from general anesthesia was une ventful and vital signs were stable. LEFT VENTRICLE The Left Ventricle is mildly dilated. There is normal left ventricular wall thickness. The systolic f unction is moderately impaired. EF 35% There is moderate global hypokinesis. Tissue Doppler imaging r eveals moderate left ventricular diastolic dysfunction. No left ventricle thrombus noted on this stud y. There is no ventricular septal defect visualized. There is no left ventricular aneurysm. RIGHT VENTRICLE The right ventricle is normal size. There is normal right ventricular wall thickness. The right ventr icular systolic function is normal. ATRIA The left atrium is mildly dilated. The right atrium is mildly dilated. The interatrial septum is aneu rysmal with a small left to right shunt noted on color doppler imaging. There is no thrombus noted in the left atrial appendage. AORTIC VALVE The aortic valve is normal in structure and function. Doppler and Color Flow revealed no significant aortic regurgitation. There is no significant aortic valvular stenosis. There is no aortic valvular v egetation. MITRAL VALVE The mitral valve is normal in structure and function. There is no evidence of mitral valve prolapse. There is no mitral valve stenosis. Doppler and Color Flow revealed no mitral valve regurgitation note d. TRICUSPID VALVE The tricuspid valve is normal in structure and function. Doppler and Color Flow revealed no tricuspid valve regurgitation noted. There is no tricuspid valve prolapse or vegetation. There is no tricuspid valve stenosis. PULMONIC VALVE The pulmonary valve is normal in structure and function. Doppler and Color Flow revealed no pulmonic valvular regurgitation. There is no pulmonic valvular stenosis. GREAT VESSELS The aortic root is normal in size. The pulmonary artery is normal. The IVC is normal in size and shonda apses >50% with inspiration. <Conclusion> The systolic function is moderately impaired. EF 35% There is moderate global hypokinesis. The interatrial septum is aneurysmal with a small left to right shunt noted on color doppler imaging. There is no thrombus noted in the left atrial appendage. Unsuccessful CVN Signed by : Maldonado Benson, Electronically Approved : 08/15/2020 14:25:47
== END 2020-08-14 12:27 | disposition home or self-care (01) ==
LOC: SURG 09:58
PROVIDERS: ATTEND Internal Medicine Cardiovascular Disease
DX: I48.91 Unspecified atrial fibrillation (principal); E78.00 Pure hypercholesterolemia, unspecified; I10 Essential (primary) hypertension; E66.9 Obesity, unspecified; K21.9 Gastro-esophageal reflux disease without esophagitis; M19.90 Unspecified osteoarthritis, unspecified site; N40.0 Benign prostatic hyperplasia without lower urinary tract symptoms; M10.9 Gout, unspecified; F32.9 Major depressive disorder, single episode, unspecified; Z87.891 Personal history of nicotine dependence; Z79.899 Other long term (current) drug therapy; Z98.890 Other specified postprocedural states; Z88.8 Allergy status to other drugs, medicaments and biological substances; Z72.89 Other problems related to lifestyle; Z82.49 Family history of ischemic heart disease and other diseases of the circulatory system
CPT/HCPCS: 36415; 80053; 85025; 85610; 85730; 92960; 93005; 93312; 93325; J0282; J1650; J2704; J3490; 93320

== ENCOUNTER → 2020-09-08 | Outpatient (CLI) | payer MEDICARE ==
[2020-08-14 12:08] VITALS: BP 132/86
[~2020-09-08] MED LIST changes: +ATOR40TA59 PO; -IV RINGERS,LACTATED 1000ML 1,000 ML IV SCH; +LOSA1TAB25 PO; +METO-239 PO; +SACU1TAB7 PO
== END ==
LOC: LAB 09:03
PROVIDERS: ATTEND Internal Medicine Cardiovascular Disease
DX: Z01.812 Encounter for preprocedural laboratory examination (principal); U07.1 COVID-19; I48.91 Unspecified atrial fibrillation
CPT/HCPCS: U0003; U0005

== ENCOUNTER 2020-10-02 06:50 | Outpatient (CLI) | payer MEDICARE ==
[~2020-10-02] VITALS: Ht 190.5 cm; Wt 159.0 kg
[2020-10-02] VITALS (14 sets, daily range): BP systolic 103–166; BP diastolic 66–93
[~2020-10-02 06:50] MED LIST changes: -ATOR40TA59 PO; -METO-239 PO; -SACU1TAB7 PO
[2020-10-02] MEDS ORDERED: LIDOCAINE 1% Multi-Dose 20 ML VIAL. ONE (07:43)
[2020-10-02] MEDS ORDERED: IODIXANOL 320 MG/ML 100 ML VIAL. ONE (07:44)
[2020-10-02] MEDS ORDERED: ATOR40TA59 PO (08:02)
[2020-10-02 08:45] LABS: HEMATOCRIT 39.1 % (39.0-53.0); HEMOGLOBIN 13.2 g/dL (13.0-17.5); RED BLOOD COUNT 4.15 x10^6/uL (4.30-5.70); RED CELL DISTRIBUTION WIDTH 14.1 % (11.5-14.5)
[2020-10-02 08:57] LABS: PROTHROMBIN TIME PATIENT 13.1 SEC (11.7-14.0)
[2020-10-02 09:02] LABS: CALCIUM 8.6 mg/dL (8.5-10.1); CREATININE 1.1 mg/dL (0.7-1.3); GFR 80.1; POTASSIUM 3.6 mmol/L (3.5-5.1)
[2020-10-02] MEDS ORDERED: NITROGLYCERIN 200 MCG/2 ML SYRINGE FOR CATH/VASC LAB. ONE (09:55)
[2020-10-02] MEDS ORDERED: fentaNYL PF VIAL 100 MCG/2 ML VIAL ONE (09:55)
[2020-10-02] MEDS ORDERED: VERAPAMIL 5 MG/2 ML VIAL. ONE (09:55)
[2020-10-02] MEDS ORDERED: HEPARIN for IV BOLUS 10,000 UNIT/10 ML VIAL. ONE (09:55)
[2020-10-02] MEDS ORDERED: MIDAZOLAM HCL/PF 2 MG/2 ML VIAL. ONE (09:55)
[2020-10-02] MEDS ORDERED: MIDAZOLAM HCL/PF 2 MG/2 ML VIAL. IV ONE (10:45)
[2020-10-02] MEDS ORDERED: VERAPAMIL 5 MG/2 ML VIAL. IART ONE (10:45)
[2020-10-02] MEDS ORDERED: fentaNYL PF VIAL 100 MCG/2 ML VIAL IV ONE (10:45)
[2020-10-02] MEDS ORDERED: NITROGLYCERIN 200 MCG/2 ML SYRINGE FOR CATH/VASC LAB. IART ONE (10:45)
[2020-10-02] MEDS ORDERED: LIDOCAINE 1% Multi-Dose 20 ML VIAL. INJ ONE (10:45)
[2020-10-02] MEDS ORDERED: CONTRAST GIVEN. MC PRN (10:45)
[2020-10-02] MEDS ORDERED: HEPARIN for IV BOLUS 10,000 UNIT/10 ML VIAL. IART ONE (10:45)
[2020-10-02] MEDS ORDERED: IODIXANOL 320 MG/ML 100 ML VIAL. IART ONE (10:45)
--- NOTE | 2020-10-02 11:21 | CARD ---
MR#: [id number] Date of Study: 10/02/2020 Ordering Physician: MALDONADO BENSON, Referring Physician: MALDOANDO BENSON, Tech: RT Adry(R) APPROVED REPORT Technologist: RT Adry(R) Nurse: Reanna Thorne RN Procedure(s) performed: FL TIME: 3.3 MINS DOSE: 63 GYCM2 CONTRAST: 45 ML MODERATE SEDATION: 22 MINS [facility], Coronary angiography HISTORY The patient is a 69 year-old male with a history of : hypertension, dyslipidemia. INDICATION The indication(s) include : dyspnea. [facility] Clinical Frailty Scale [facility] Clinical Frailty Scale: Mildly Frail Heart Failure Heart Failure: Yes If Yes, Newly Diagnosed: No If Yes, HF Type: Diastolic If Yes, NYHA Class: Class II CASE TECHNIQUE IV conscious sedation was used throughout procedure with appropriate monitoring and was performed in the presence of a registered nurse who was an independent trained observer other than the physician p erforming the procedure. During this case, Fluoroscopy and low osmolar contrast were used for imaging . Specimen(s) Removed: N/A Estimated Blood loss: 15 cc's. PROCEDURE NARRATIVE Clinical information: 69 y.o male presenting for exertional dyspnea. Informed consent: Written informed consent was obtained from the patient after adequate discussion of the risks and nova efits of the procedure. Procedure details: ACCESS: The right wrist was prepped and draped in usual sterile fashion. Under 1% lidocaine local anesthesia a 6 [place] Terumo sheath was placed in the right radial artery via the Seldinger technique. DIAGNOSTIC ANGIOGRAPHY: Right and left coronary arteries were engaged with a 6 [place] TIG catheter and 6Fr JR4 catheter. Toshia gnostic angiography in multiple views were obtained. Next, a 6 [place] pigtail catheter was placed in the left ventricle and a LVEDP was measured. A pullback was performed. All catheters were exchange d over J-tip guidewire. FINDINGS: ======= Aorta: 110/80 LVEDP: 15 mmHg Left ventriculogram: Deferred due to known EF of 35%. Coronary angiography: LM: Large caliber vessel with normal angiographic appearance LAD: Large caliber vessel with normal angiographic appearance. LCX: Moderate caliber non-dominant vessel with normal angiographic appearance. RCA: Large caliber dominant vessel with normal angiographic appearance. CLOSURE: At case completion the right radial sheath was removed and a Terumo radial band was applied with 11 m L of air. Hemostasis was achieved. COMPLICATIONS: No acute complications noted Conclusion 1. Normal left sided filling pressures. 2. No angiographic evidence of coronary disease. Recommendations Aggressive Medical Therapy Signed by : Maldonado Benson, Electronically Approved : 10/02/2020 11:21:24
--- NOTE | 2020-10-02 11:42 | PDOC1 ---
History and Physical Visit Information Date of Admission: 10/02/2020 History of Present Illness History of Present Illness Mr. Rod is a pleasant 69-year-old man coming into the hospital today for a outpatient diagnostic catheterization in the setting of LV dysfunction and exertional dyspnea. Cardiac Risk Factors Comments Hypertension Morbid obesity Cardiomyopathy with an ejection fraction of 35% Current Medications Current Medications Current Medications Fentanyl Citrate (Fentanyl 2ml Vial) 100 mcg 1X ONCE IV Last administered on 10/02/20at 10:43; Start 10/02/20 at 10:45; Stop 10/02/20 at 10:46; Status DC Fentanyl Citrate (Fentanyl 2ml Vial) 100 mcg STK-MED ONCE .ROUTE ; Start 10/02/20 at 09:55; Stop 10/02/20 at 09:55; Status DC Heparin Sodium (Porcine) (Heparin Sodium) 2,500 unit 1X ONCE IART Last administered on 10/02/20at 10:45; Start 10/02/20 at 10:45; Stop 10/02/20 at 10:46; Status DC Heparin Sodium (Porcine) (Heparin Sodium) 10,000 unit STK-MED ONCE .ROUTE ; Start 10/02/20 at 09:55; Stop 10/02/20 at 09:55; Status DC Heparin Sodium/ Sodium Chloride 1,000 ml @ As Directed STK-MED ONCE .ROUTE ; Start 10/02/20 at 07:44; Stop 10/02/20 at 07:44; Status DC Heparin Sodium/ Sodium Chloride (HEPARIN for ARTERIAL LINE FLUSH) 1,000 unit 1X ONCE IART Last administered on 10/02/20at 10:41; Start 10/02/20 at 10:45; Stop 10/02/20 at 10:46; Status DC Info (CONTRAST GIVEN -- Rx MONITORING) 1 each PRN DAILY PRN MC SEE COMMENTS; Start 10/02/20 at 10:45; Stop 10/04/20 at 10:44 Iodixanol (Visipaque 320) 100 ml 1X ONCE IART Last administered on 10/02/20at 10:44; Start 10/02/20 at 10:45; Stop 10/02/20 at 10:46; Status DC Iodixanol (Visipaque 320) 100 ml STK-MED ONCE .ROUTE ; Start 10/02/20 at 07:44; Stop 10/02/20 at 07:44; Status DC Lidocaine HCl (Lidocaine 1% 20ml Vial) 20 ml 1X ONCE INJ Last administered on 10/02/20at 10:43; Start 10/02/20 at 10:45; Stop 10/02/20 at 10:46; Status DC Lidocaine HCl (Lidocaine 1% 20ml Vial) 20 ml STK-MED ONCE .ROUTE ; Start 10/02/20 at 07:43; Stop 10/02/20 at 07:44; Status DC Midazolam HCl (Versed) 2 mg 1X ONCE IV Last administered on 10/02/20at 10:44; Start 10/02/20 at 10:45; Stop 10/02/20 at 10:46; Status DC Midazolam HCl (Versed) 2 mg STK-MED ONCE .ROUTE ; Start 10/02/20 at 09:55; Stop 10/02/20 at 09:55; Status DC Nitroglycerin (Nitroglycerin) 200 mcg 1X ONCE IART Last administered on 10/02/20at 10:41; Start 10/02/20 at 10:45; Stop 10/02/20 at 10:46; Status DC Nitroglycerin (Nitroglycerin) 200 mcg STK-MED ONCE .ROUTE ; Start 10/02/20 at 09:55; Stop 10/02/20 at 09:56; Status DC Verapamil HCl (Verapamil) 2.5 mg 1X ONCE IART Last administered on 10/02/20at 10:42; Start 10/02/20 at 10:45; Stop 10/02/20 at 10:46; Status DC Verapamil HCl (Verapamil) 5 mg STK-MED ONCE .ROUTE ; Start 10/02/20 at 09:55; Stop 10/02/20 at 09:55; Status DC Allergies Allergies Allergies Coded Allergies Type Severity Reaction Last Updated Verified lisinopril Adverse Reaction Severe COUGH 08/14/20 Yes Social History Comments No alcohol, tobacco or illicit drug use Family History Comments Noncontributory ROS Review of System Negative for 10 out of 14 systems reviewed unless otherwise mentioned above in HPI. Physical Exam Comments The patient appeared well nourished and normally developed. Head exam is unremarkable. No scleral icterus or corneal arcus noted. Neck is without jugular venous distension, thyromegaly, or carotid bruits. Carotid upstrokes are brisk bilaterally. Lungs are clear to auscultation and percussion. Cardiac exam reveals the PMI to be normally sized and situated. Rhythm is irregular. First and second heart sounds normal. No murmurs, rubs or gallops. Abdominal exam reveals normal bowel sounds, no masses, no organomegaly and no aortic enlargement. Extremities are nonedematous and both femoral and pedal pulses are normal. Msk: No traumua Neuro: No focal deficits Vitals VITALS Vital Signs Date Time Temp Pulse Resp B/P (MAP) Pulse Ox O2 Delivery O2 Flow Rate FiO2 10/02/20 11:30 68 16 95 Room Air 10/02/20 10:43 2.0 10/02/20 07:49 97.5 137/89 (105) 97.5 Labs Labs Laboratory Tests Test 10/02/20 08:40 White Blood Count 8.0 x10^3/uL (4.0-11.0) Red Blood Count 4.15 x10^6/uL (4.30-5.70) Hemoglobin 13.2 g/dL (13.0-17.5) Hematocrit 39.1 % (39.0-53.0) Mean Corpuscular Volume 94 fL (79-100) Mean Corpuscular Hemoglobin 32 pg (25-35) Mean Corpuscular Hemoglobin Concent 34 g/dL (31-37) Red Cell Distribution Width 14.1 % (11.5-14.5) Platelet Count 284 x10^3/uL (140-400) Prothrombin Time 13.1 SEC (11.7-14.0) Prothromb Time International Ratio 1.0 (0.8-1.1) Sodium Level 142 mmol/L (136-145) Potassium Level 3.6 mmol/L (3.5-5.1) Chloride Level 106 mmol/L (98-107) Carbon Dioxide Level 28 mmol/L (21-32) Anion Gap 8 (6-14) Blood Urea Nitrogen 12 mg/dL (8-26) Creatinine 1.1 mg/dL (0.7-1.3) Estimated GFR (Cockcroft-Gault) 80.1 Glucose Level 127 mg/dL (70-99) Calcium Level 8.6 mg/dL (8.5-10.1) Laboratory Tests Test 10/02/20 08:40 White Blood Count 8.0 x10^3/uL (4.0-11.0) Red Blood Count 4.15 x10^6/uL (4.30-5.70) Hemoglobin 13.2 g/dL (13.0-17.5) Hematocrit 39.1 % (39.0-53.0) Mean Corpuscular Volume 94 fL (79-100) Mean Corpuscular Hemoglobin 32 pg (25-35) Mean Corpuscular Hemoglobin Concent 34 g/dL (31-37) Red Cell Distribution Width 14.1 % (11.5-14.5) Platelet Count 284 x10^3/uL (140-400) Prothrombin Time 13.1 SEC (11.7-14.0) Prothromb Time International Ratio 1.0 (0.8-1.1) Sodium Level 142 mmol/L (136-145) Potassium Level 3.6 mmol/L (3.5-5.1) Chloride Level 106 mmol/L (98-107) Carbon Dioxide Level 28 mmol/L (21-32) Anion Gap 8 (6-14) Blood Urea Nitrogen 12 mg/dL (8-26) Creatinine 1.1 mg/dL (0.7-1.3) Estimated GFR (Cockcroft-Gault) 80.1 Glucose Level 127 mg/dL (70-99) Calcium Level 8.6 mg/dL (8.5-10.1) ECG EKG: A.Fib, w/ vent. rate of: VTE Prophylaxis Ordered VTE Prophylaxis Devices: No VTE Pharmacological Prophylaxi: No Assessment/Plan Assessment/Plan 1. 69-year-old male presenting with cardiomyopathy - Plan for cardiac cath. Justicifation of Admission Dx: Justifications for Admission: Justification of Admission Dx: N/A MALDONADO BENSON MD October 02, 2020 11:42
--- NOTE | 2020-10-02 11:42 | PDOC ---
MODERATE SEDATION ASSESSMENT RISKS/ALTERNATIVES Risks/Alternatives Risks and alternatives of this type of sedation and procedure discussed with: RISK/ALTERNATIVES: Patient H & P ON CHART H & P H & P on chart and reviewed for co-morbid conditions and appropriate labs. H&P ON CHART: Yes STATUS PREG STATUS ASSESSED: N/A MEDS/ALLERGIES REVIEWED Meds/Allergies Reviewed Medications and Allergies including time and route of recently administered narcotics and sedatives. MEDS/ALLERGIES REVIEWED: Yes ASA RATING ASA RATING: II AIRWAY ASSESSMENT Airway Assessment Airway patency, oral function limitations, presence of caps, crowns, dentures, partials, and ability to extend neck assessed. AIRWAY ASSESSMENT: Yes MALLAMPATI SCORE MALLAMPATI SCORE: II PRE-SEDATION ASSESSMENT PRE-SEDATION ASSESSMENT: Yes MALDONADO BENSON MD October 02, 2020 11:42
--- NOTE | 2020-10-02 13:35 | NUR ---
RIGHT RADIAL DRESSING CHANGED AND NEW ONE APPLIED, ALONG WITH ARM BOARD, NO COMPLICATIONS. RIGHT UPPER ARM PIV DISCONTINUED, NO COMPLICATIONS AND BANDAID APPLIED. VSS. WAITING FOR DR. BENSON TO DISCUSS NEW MEDICATIONS WITH PATIENT, PRIOR TO DISCHARGE.
[2020-10-02] MEDS ORDERED: SACU1TAB7 PO (13:52)
[2020-10-02] MEDS ORDERED: METO-239 PO (13:52)
--- NOTE | 2020-10-02 14:00 | NUR ---
DISCHARGE COMPLETE. MODERATE SEDATION AND RADIAL SITE CARE EDUCATION REVIEWED, QUESTIONS ANSWERED. DR. BENSON REVIEWED NEW PRESCRIPTIONS WITH PATIENT, PT UNDERSTOOD. PT TAKEN VIA WHEELCHAIR TO OUTPATIENT ENTRANCE, PT'S DAUGHTER DRIVING HIM HOME.
== END 2020-10-02 14:15 | disposition home or self-care (01) ==
LOC: CCL 06:50
PROVIDERS: ATTEND Internal Medicine Cardiovascular Disease
DX: R06.00 Dyspnea, unspecified (principal); I48.91 Unspecified atrial fibrillation; I11.0 Hypertensive heart disease with heart failure; I50.9 Heart failure, unspecified; E78.00 Pure hypercholesterolemia, unspecified; E66.9 Obesity, unspecified; K21.9 Gastro-esophageal reflux disease without esophagitis; M19.90 Unspecified osteoarthritis, unspecified site; N40.0 Benign prostatic hyperplasia without lower urinary tract symptoms; M10.9 Gout, unspecified; F32.9 Major depressive disorder, single episode, unspecified; Z87.891 Personal history of nicotine dependence; Z79.899 Other long term (current) drug therapy; Z98.890 Other specified postprocedural states; Z88.8 Allergy status to other drugs, medicaments and biological substances; Z82.49 Family history of ischemic heart disease and other diseases of the circulatory system; Z83.3 Family history of diabetes mellitus
CPT/HCPCS: 36415; 80048; 85027; 85610; 93458; 99152; C1769; C1894; J1644; J2250; J3010; J3490; Q9967

== ENCOUNTER → 2020-11-26 | Outpatient (CLI) | payer MEDICARE ==
[2020-10-02 13:25] VITALS: BP 131/69
[~2020-11-26] MED LIST changes: +ATOR40TA59 PO; +ESOM20CA PO; +METO-239 PO; +SACU1TAB7 PO
--- NOTE | 2020-11-26 13:21 | PDOC ---
Progress Note - Pain Clinic Date of Service: DOS: DATE: 11/26/20 TIME: 13:11 Diagnosis: Dx: Cervical radiculopathy with cervical degenerative disc disease History or Present Illness: HPI: 70-year-old male returns for follow-up status post cervical epidural steroid injection last seen March 29, 2019. Patient had cervical epidural steroid injection at time with about a 60% improvement patient reports the pain returned over the past 5 to 6 months very gradually in the base the neck and shoulders and where it was mostly focused on the right side is now both sides of the shoulders and neck and both upper extremities which is virtually redoing the ri ght side. Patient reports this is new over the past 6 months or so no specific injury or accident that he is aware of the pain is rating to bilateral shoulders bilateral upper extremities right equal to left into the arms and forearms causing some fatigability but no overt motor loss of the upper extremities patient reports is aching and sharp in the neck stabbing and can be severe with radiating shooting pain in the arms patient reports a 10 on scale 10 is average worst and least is a 10 today. Patient reports it generally better with sitting or laying down but will awaken from sleep lately. Initially doing much better distance walking doing household activities travel with greater ease and comfort and sleeping better now the pain is returning again with new findings of left- sided pain as well as right. Reviewed patient's old MRI scan with him today of the cervical spine which was December 02. Patient reports no other new changes or other complaints. Patient is been doing stretching strength exercis es from previous physical therapy years ago and has been performing these on his own without significant decrease in pain. Patient also taking extra strength Tylenol 2-3 times daily with only 10 to 20% decrease in pain. Physical Exam: VS: Blood pressure is 164/85 pulse 95 respirations 18 temperature 98.1 F is 6 foot 4 inches weight is 366 pounds PE: PHYSICAL EXAMINATION: GENERAL: The patient is awake, alert, oriented, appropriate, very pleasant in d emeanor. HEENT: Shows normocephalic, atraumatic. Extraocular movements are intact and symmetrical. Oral cavity: Mucous membranes moist and pink. NECK: Shows anterior throat supple without palpable lymphadenopathy noted. Swallow reflex symmetrical. CHEST: Shows normal on inspection. Breath sounds are clear bilaterally, no rales or rhonchi bilaterally. HEART: Shows S1, S2 clear. No murmurs auscultated. ABDOMEN: Soft, nontender, nondistended, obese. No palpable organomegaly is noted. BACK: Shows spine grossly in the midline. Normal-appearing cervical lordotic curvature. Cervical paraspinous muscles show symmetrical inspection on palpation some moderate tenderness throughout the upper middle and lower distribution the paraspinous muscles only diffusely without specific radiation. Patient has some moderate tenderness in the bilateral superior medial trapezius as well as the lateral trapezius on the right compared to the left but without trigger points or radiation. Patient shows good rotation motion cervical spine both laterally greater than 45 degrees closer to 90 degrees as well as full extension full forward flexion with some mild pain reported with extension only. No radiation of pain is demonstrated with rotation of the cervical spine. There is increased thoracic kyphosis, some flattening of the lumbar lordotic curvature. EXTREMITIES: Upper extremities show deep tendon reflexes 2+ in the biceps and triceps tendons. 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 Peripheral pulses are 2+ radial. No peripheral edema is noted bilaterally. Upper extremities are warm and dry to touch, equal in color and appearance. SKIN: Shows warm and dry, good turgor. No edema. No sores, rashes or bruising throughout. Procedure: Procedure: Patient discussed with the patient. Chart was reviewed his medication regimen updated current review of systems updated today as well. We will clear holding his Xarelto with his cooker soda for 2 days prior to procedure. Patient will be preauthorized for cervical epidural steroid injection as he has bilateral C6- 7 dermatomal distribution radiculopathy. Patient continue with stretching and strengthening exercises on his own as well as oral analgesics and taking extra strength Tylenol. Once preapproved, will have patient return for translaminar approach C6-7 level cervical epidural steroid injection at that time. Medication Injected: Med Injected: None Condition at Discharge: Condition at Discharge: Condition at discharge is stable. KATHE BARRON MD Nov 26, 2020 13:20
== END | disposition home or self-care (01) ==
LOC: PNCL 12:43
PROVIDERS: ATTEND Anesthesiology
DX: M50.10 Cervical disc disorder with radiculopathy, unspecified cervical region (principal); I11.0 Hypertensive heart disease with heart failure; I50.9 Heart failure, unspecified; E78.00 Pure hypercholesterolemia, unspecified; I48.91 Unspecified atrial fibrillation; K21.9 Gastro-esophageal reflux disease without esophagitis; E66.9 Obesity, unspecified; M19.90 Unspecified osteoarthritis, unspecified site; N40.0 Benign prostatic hyperplasia without lower urinary tract symptoms; M10.9 Gout, unspecified; F32.9 Major depressive disorder, single episode, unspecified; Z87.891 Personal history of nicotine dependence; Z79.899 Other long term (current) drug therapy; Z98.890 Other specified postprocedural states; Z88.8 Allergy status to other drugs, medicaments and biological substances; Z82.49 Family history of ischemic heart disease and other diseases of the circulatory system
CPT/HCPCS: 99212; G0463

== ENCOUNTER → 2020-12-08 | Outpatient (CLI) | payer MEDICARE ==
[2020-10-02 13:25] VITALS: BP 131/69
[~2020-12-08] MED LIST changes: +IOHEXOL 180 MG/ML 10 ML VIAL. ONE; +methylPREDNISolone ACETATE 40 MG/ML VIAL. ONE; +methylPREDNISolone ACETATE 80 MG/ML VIAL. ONE
--- NOTE | 2020-12-08 14:12 | PDOC ---
Progress Note - Pain Clinic Date of Service: DOS: DATE: 12/08/20 TIME: 14:09 Diagnosis: Dx: Cervical radiculopathy with cervical degenerative disc disease Lumbar radiculopathy with lumbar degenerative disc disease History or Present Illness: HPI: 70-year-old male returns for follow-up status post previous evaluations and cervical epidural steroid injection most recently in February 2019. Patient r eports he did very well with his near 1% improvement initially and then 65 to 70% improvement for several months after that patient reports he is still having pain base the neck and the upper extremities more on the left than the right as was previously rated as a 9 on scale 10 is worse over the past week 9 on average sleeps is a 9 today patient is aching sharp tight stabbing tingling radiating the left upper extremity and some numbness and tingling in the left hand patient reports no loss of motor function but fatigability occasional with the left arm patient reports its aching and cramping in the hand as well on the left side. Patient reports no new motor or sensory deficits no new bowel or bladder incontinence. Patient is off Xarelto now has been off it for 3 days. Physical Exam: VS: Blood pressure is 155/97 pulse 81 respirations 18 temperature 98.2 F height is 6 foot 4 inches weight is 365 pounds PE: PHYSICAL EXAMINATION: GENERAL: The patient is awake, alert, oriented, appropriate, very pleasant in demeanor. HEENT: Shows normocephalic, atraumatic. Extraocular movements are intact and symmetrical. Oral cavity: Mucous membranes moist and pink. NECK: Shows anterior throat supple without palpable lymphadenopathy noted. Swallow reflex symmetrical. CHEST: Shows normal on inspection. Breath sounds are clear bilaterally, distant but no rales or rhonchi. HEART: Shows S1, S2 clear. No murmurs auscultated. ABDOMEN: Soft, nontender, nondistended. BACK: Shows spine grossly in the midline. Normal-appearing cervical lordotic curvature. Cervical paraspinous muscles show symmetrical with inspection, on palpation some moderate tenderness diffusely bilaterally in the inferior aspect the cervical paraspinous musculature more the left than the right into the superior medial trapezius but without atrophy hypertrophy and without trigger points. Patient shows good rotation motion cervical spine both laterally as well as extension and flexion. There is slightly increased thoracic kyphosis, some minor flattening of the lumbar lordotic curvature. EXTREMITIES: Upper extremities show deep tendon reflexes to in the patellar and tendo calcaneus tendons. Motor exam is 4 on a scale of 5 with right dorsiflexion, extension, quadriceps and hamstring flexion and 5/5 on the left. Peripheral pulses are 2+ posterior tibial. No peripheral edema is noted bilaterally. Upper extremities are warm and dry to touch, equal in color and appearance. Shoulder shrug strong and intact without loss of strength on resistance bilaterally. SKIN: Shows warm and dry, good turgor. No edema. No sores, rashes or bruising throughout. Procedure: Procedure: Options discussed with the patient. Patient chart reviewed his his current medication regimen updated current review of systems updated today as well. We will proceed with a cervical epidural steroid ejections today with fluoroscopic guidance. Risks were discussed including but not limited to: Bleeding, infec tion, possibility of epidural hematoma and subsequent neurological compromise, dural puncture, headaches, spinal cord and/or nerve damage, side effects of steroid medication, and poor results regarding pain control. Patient understands and wished to proceed. Patient will return to the clinic in approximate 2 weeks for follow-up, was counseled as to return appointment activity level, and side effects to be aware of. Medication Injected: Med Injected: Procedure cervical epidural steroid injection at the C6-7 level, using local anesthetic under sterile prep and drape using C-arm fluoroscopic guidance under local anesthesia medications injected ;120 mg Depo-Medrol +5 mL normal saline and 2 mL contrast; condition at discharge is stable patient tolerated procedure well. and had no complications Condition at Discharge: Condition at Discharge: Condition at discharge stable, patient tolerated the procedure well and had no complications. KATHE BARRON MD Dec 08, 2020 14:12
--- NOTE | 2020-12-08 14:13 | PDOC4 ---
Procedure Note: ICD 10 Code: ICD 10 Code: M 54.12 M 50.30 Procedure Note: Patient was consented for cervical epidural steroid injection. Risks were discussed including but not limited to: Bleeding, infection, possibility of epidural hematoma and subsequent neurological compromise, dural puncture, headaches, spinal cord and/or nerve damage, side effects of steroid medication, and poor results regarding pain control. Patient understands and wished to proceed. Procedure cervical epidural steroid injection at the C6-7 level, using local anesthetic under sterile prep and drape using C-arm fluoroscopic guidance under local anesthesia medications injected ;120 mg Depo-Medrol +5 mL normal saline and 2 mL contrast; condition at discharge is stable patient tolerated procedure well. and had no complications KATHE BARRON MD Dec 08, 2020 14:13
== END | disposition home or self-care (01) ==
LOC: PNCL 13:29
PROVIDERS: ATTEND Anesthesiology
DX: M50.10 Cervical disc disorder with radiculopathy, unspecified cervical region (principal); M51.16 Intervertebral disc disorders with radiculopathy, lumbar region; I11.0 Hypertensive heart disease with heart failure; I50.9 Heart failure, unspecified; I48.91 Unspecified atrial fibrillation; E78.00 Pure hypercholesterolemia, unspecified; E66.9 Obesity, unspecified; K21.9 Gastro-esophageal reflux disease without esophagitis; N40.0 Benign prostatic hyperplasia without lower urinary tract symptoms; M19.90 Unspecified osteoarthritis, unspecified site; M10.9 Gout, unspecified; F32.9 Major depressive disorder, single episode, unspecified; Z87.891 Personal history of nicotine dependence; Z79.899 Other long term (current) drug therapy; Z98.890 Other specified postprocedural states; Z72.89 Other problems related to lifestyle; Z88.8 Allergy status to other drugs, medicaments and biological substances
CPT/HCPCS: 62321; J1030; J1040; Q9965

== ENCOUNTER → 2021-07-29 | Outpatient (CLI) | payer MEDICARE ==
[2020-10-02 13:25] VITALS: BP 131/69
[~2021-07-29] MED LIST changes: -IOHEXOL 180 MG/ML 10 ML VIAL. ONE; +PERFLUTREN PROTEIN-A MICROSPHR 0.22 MG/ML 3 ML VIAL. IV ONE; +POTA-121 PO; -POTA20TA4 PO; -methylPREDNISolone ACETATE 40 MG/ML VIAL. ONE; -methylPREDNISolone ACETATE 80 MG/ML VIAL. ONE
--- NOTE | 2021-07-29 17:58 | CARD ---
MR#: [id number] Date of Study: 07/29/2021 Ordering Physician: MALDONADO BENSON, Referring Physician: MALDONADO BENSON, Tech: Karyn Arguello [facility] APPROVED REPORT EXAM: Two-dimensional and M-mode echocardiogram with Doppler and color Doppler. Other Information Quality : Technically LimitedHR: 70bpm Rhythm : NSR INDICATION Atrial Fibrillation RISK FACTORS Hypertension Obesity Hyperlipidemia Diabetes 2D DIMENSIONS RVDd3.5 (2.9-3.5cm)Left Atrium(2D)4.3 (1.6-4.0cm) IVSd1.3 (0.7-1.1cm)Aortic Root(2D)3.9 (2.0-3.7cm) LVDd5.3 (3.9-5.9cm)LVOT Diameter2.5 (1.8-2.4cm) PWd1.4 (0.7-1.1cm)LVDs4.5 (2.5-4.0cm) FS (%) 15.2 %SV43.4 ml LVEF(%)32.0 (>50%) Aortic Valve AoV Peak William.107.0cm/sAoV VTI19.0cm AO Peak GR.4.6mmHgLVOT Peak William.82.1cm/s AO Mean GR.2mmHgAVA (VMAX)3.62cm2 Mitral Valve MV E Gifovgvf74.6cm/sMV DECEL [id number] MV A Rctjkdbw25.9cm/sE/A Ratio0.8 Pulmonary Valve PV Peak Cdrtzxek747.0cm/s Tricuspid Valve TR P. Iiyvcsaq037xp/sTR Peak Gr.24mmHg LEFT VENTRICLE The left ventricle is normal size. There is mild concentric left ventricular hypertrophy. The left ve ntricular systolic function is normal. Estimated ejection 55%. There is normal LV segmental wall mot ion. Transmitral Doppler flow pattern is Grade I-abnormal relaxation pattern. RIGHT VENTRICLE The right ventricle is normal size. There is normal right ventricular wall thickness. The right ventr icular systolic function is normal. ATRIA The left atrium size is normal. The right atrium size is normal. The interatrial septum is intact wit h no evidence for an atrial septal defect or patent foramen ovale as noted on 2-D or Doppler imaging. AORTIC VALVE The aortic valve is normal in structure and function. Doppler and Color Flow revealed no significant aortic regurgitation. There is no significant aortic valvular stenosis. MITRAL VALVE The mitral valve is normal in structure and function. There is no evidence of mitral valve prolapse. There is no mitral valve stenosis. Doppler and Color Flow revealed no mitral valve regurgitation note d. TRICUSPID VALVE The tricuspid valve is normal in structure and function. Doppler and Color Flow revealed no tricuspid valve regurgitation noted. There is no tricuspid valve stenosis. PULMONIC VALVE The pulmonary valve is normal in structure and function. Doppler and Color Flow revealed no pulmonic valvular regurgitation. GREAT VESSELS The aortic root is mildly enlarged. The ascending aorta is Mildly dilated. The IVC is normal in size and collapses >50% with inspiration. PERICARDIAL EFFUSION There is no evidence of significant pericardial effusion. Critical Notification Critical Value: No <Conclusion> The left ventricular systolic function is normal. Estimated ejection 55%. There is normal LV segmental wall motion. Transmitral Doppler flow pattern is Grade I-abnormal relaxation pattern. There is no evidence of significant pericardial effusion. Signed by : Christiano Mondragon, Electronically Approved : 07/29/2021 17:58:01
== END ==
LOC: ECHO 10:28
PROVIDERS: ATTEND Internal Medicine Cardiovascular Disease
DX: I51.7 Cardiomegaly (principal); I77.810 Thoracic aortic ectasia; I42.9 Cardiomyopathy, unspecified; I48.91 Unspecified atrial fibrillation
CPT/HCPCS: C8929; Q9956